=== PATIENT | female | born 1960 | race Caucasian/White ===

== ENCOUNTER → 2023-08-22 15:35 | Outpatient (REF) | payer OTHER, SELFPAY | LOC: WDC 15:35 | PROVIDERS: ATTENDING PHYSICIAN Family Medicine | DX: Z12.31 Encounter for screening mammogram for malignant neoplasm of breast (principal) | CPT/HCPCS: 77063; 77067 ==

== ENCOUNTER → 2023-12-17 12:34 | Outpatient (REF) | payer OTHER, SELFPAY | LOC: RAD 12:34 | PROVIDERS: ATTENDING PHYSICIAN Family Medicine | DX: S60.222A Contusion of left hand, initial encounter (principal) | CPT/HCPCS: 73130 ==

== ENCOUNTER → 2024-01-19 13:53 | Outpatient (REF) | payer OTHER, SELFPAY | LOC: MRI 3T 13:53 | PROVIDERS: ATTENDING PHYSICIAN Orthopaedic Surgery; FAMILY PHYSICIAN Family Medicine | DX: M25.532 Pain in left wrist (principal) | CPT/HCPCS: 73221 ==

== ENCOUNTER → 2024-10-05 12:05 | Outpatient (REF) | payer OTHER, SELFPAY | LOC: HWWDC 12:05 | PROVIDERS: ATTENDING PHYSICIAN Family Medicine | DX: Z12.31 Encounter for screening mammogram for malignant neoplasm of breast (principal) | CPT/HCPCS: 77063; 77067 ==

== ENCOUNTER → 2025-02-02 09:39 | Outpatient (REF) | payer OTHER, SELFPAY | LOC: HWRAD 09:39 | PROVIDERS: ATTENDING PHYSICIAN Nurse Practitioner Adult Health | DX: M85.80 Other specified disorders of bone density and structure, unspecified site (principal); Z78.0 Asymptomatic menopausal state | CPT/HCPCS: 77080 ==